=== PATIENT | male | born 1990 | race Caucasian/White ===

== ENCOUNTER 2017-09-28 11:54 | Emergency (ER) | payer OTHER ==
[~2017-09-28] VITALS: Ht 182.9 cm; Wt 81.6 kg
[~2017-09-28 11:54] MED LIST: CEPH250C37 PO; LOR5/325 PO
[2017-09-28 13:08] VITALS: BP 117/84
--- NOTE | 2017-12-21 07:15 | ER Report ---
History and Physical Time Seen By MD: 17:00 Hx. of Stated Complaint: pt reports he d/c an iv and blood/fluid splashed face and possibly got in L eye HPI/ROS Works an employee of [employer]. Possibly had blood splash into his left eye while removing an IV. Washed his eye copiously already immediately after the possible accident. No known HIV/hepatitis from source patient. Remainder of the 14 system rev: Yes Allergies: Coded Allergies: weed pollen (Unverified Allergy, Unknown, 12/13/17) Home Meds No Active Prescriptions or Reported Meds Reviewed Nurses Notes: Yes Old Medical Records Reviewed: No Hx Smoking: No Exposure to Second Hand Smoke?: No Hx Substance Use Disorder: No Hx Alcohol Use: Yes Physical Exam GE: Appears well. No evidence of fb to face/eye HEENT: PERRL, EOMI, no fb to b/l eyes CV: RRR no m/r/g Lungs: cta b/l no w/r/r Medical Decision Making Data Points Laboratory Hematology Test 09/28/17 12:45 Hepatitis B Surface Antigen Negative (NEGATIVE) Hepatitis B Surface Antibody Positive Hepatitis C Antibody Negative (NEGATIVE) HIV (1&2) Antibody Negative (NEGATIVE) Chemistry Test 09/28/17 12:45 Hepatitis B Surface Antigen Negative (NEGATIVE) Hepatitis B Surface Antibody Positive Hepatitis C Antibody Negative (NEGATIVE) HIV (1&2) Antibody Negative (NEGATIVE) ED Course/Re-evaluation ED Course Possible blood exposure to left eye. Already irrigated copiously. No vision changes or fb sensation. Occupational exposure protocol followed. Patient discharged back to full duty. Decision to Disposition Date: Sep 28, 2017 Decision to Disposition Time: 17:30 Depart Departure Impression: Primary Impression: Exposure to blood or body fluid Condition: Improved Disposition: HOME OR SELF-CARE New Scripts No Active Prescriptions or Reported Meds Departure Forms: Medications Reconciliation, Patient Portal Information, ER Transition Record Patient Instructions: Body Substance Exposure (ED) BEULAH CASEY MD Dec 21, 2017 07:15
== END 2017-09-28 13:11 | disposition home or self-care (01) ==
LOC: ER 12:28
DX: Z77.21 Contact with and (suspected) exposure to potentially hazardous body fluids (principal)
CPT/HCPCS: 86703; 86706; 86803; 87340; 99281

== ENCOUNTER → 2017-11-20 | Outpatient (REF) ==
[2017-11-20 10:12] LABS: LDL CHOLESTEROL 108 mg/dl
== END ==
DX: Z02.9 Encounter for administrative examinations, unspecified (principal)

== ENCOUNTER 2018-09-28 14:19 | Emergency (ER) | payer OTHER ==
[~2018-09-28 14:19] MED LIST changes: +CYCL10TA29 PO; +HYDR28.33 ASDIRECTED
[2018-09-28] MEDS ORDERED: ONDANSETRON 4 MG ODT TABDP SL ONE (14:45)
[2018-09-28] MEDS ORDERED: IBUPROFEN 600 MG TAB PO ONE (14:45)
--- NOTE | 2018-09-28 15:45 | RADIOLOGY IMAGING REPORT ---
[place] [facility] [place] NAME: Eileen Henao : 1990 MR: [id number] V: [id number] EXAM DATE: ORDERING PHYSICIAN: HOSSEIN LOPEZ TECHNOLOGIST: Location: [facility] - [place] Patient: Eileen Henao : 1990 Visit/Account:[id number] Date of Sevice: 09/28/2018 EXAMINATION: CT Head without intravenous contrast CT Cervical spine without intravenous contrast HISTORY: Trauma. TECHNIQUE: Head: Axial images were obtained from the skull base to the vertex without intravenous contrast. Sa gittal and coronal reformatted images are also submitted. Cervical spine: Axial images were obtained from the skull base through the upper thoracic spine with out IV contrast administration. Coronal and sagittal reformatted images were obtained from the axial source data. One of the following dose optimization techniques was utilized in the performance of this exam: Autom ated exposure control; adjustment of the mA and/or kV according to the patient's size; or use of an i terative reconstruction technique. Specific details can be referenced in the facility's radiology C T exam operational policy. COMPARISON: None available. FINDINGS: HEAD: Brain volume: Normal. Ventricles: Negative. Acute ischemic changes: None. Hemorrhage: None. Masses / edema: None. Pope-white: Negative. White matter: Negative. Vessels: Negative. Extra-axial: Negative. Calvarium / skull base: Negative. Visualized sinuses / orbits: Moderate mucosal thickening in the paranasal sinuses with mild fluid in the maxillary sinuses. CERVICAL SPINE: Alignment: Straightening of the normal lordosis. Cranio-cervical junction: Negative. Vertebral bodies: Negative. Posterior elements: Negative. Hardware: None. Disc Spaces: Negative. Soft tissues: Negative. Visualized upper chest: Negative. IMPRESSION: 1. No acute intracranial abnormality. 2. No acute cervical spine fracture. 3. Moderate mucosal thickening in the paranasal sinuses with mild fluid in the maxillary sinuses. Thi s may represent acute sinusitis in the appropriate clinical setting. Report Dictated By: Kareem Mac MD at 09/28/2018 3:33 PM Report E-Signed By: Kareem Mac MD at 09/28/2018 3:42 PM WSN:[id number]
--- NOTE | 2018-09-28 15:46 | RADIOLOGY IMAGING REPORT ---
FACILITY: [facility] PATIENT NAME: Eileen Henao : 1990 MR: [id number] V: [id number] EXAM DATE: ORDERING PHYSICIAN: HOSSEIN LOPEZ TECHNOLOGIST: Location: [facility] Patient: Eileen Henao : 1990 Visit/Account:[id number] Date of Sevice: 09/28/2018 EXAMINATION: CT Head without intravenous contrast CT Cervical spine without intravenous contrast HISTORY: Trauma. TECHNIQUE: Head: Axial images were obtained from the skull base to the vertex without intravenous contrast. Sa gittal and coronal reformatted images are also submitted. Cervical spine: Axial images were obtained from the skull base through the upper thoracic spine with out IV contrast administration. Coronal and sagittal reformatted images were obtained from the axial source data. One of the following dose optimization techniques was utilized in the performance of this exam: Autom ated exposure control; adjustment of the mA and/or kV according to the patient's size; or use of an i terative reconstruction technique. Specific details can be referenced in the facility's radiology C T exam operational policy. COMPARISON: None available. FINDINGS: HEAD: Brain volume: Normal. Ventricles: Negative. Acute ischemic changes: None. Hemorrhage: None. Masses / edema: None. Pope-white: Negative. White matter: Negative. Vessels: Negative. Extra-axial: Negative. Calvarium / skull base: Negative. Visualized sinuses / orbits: Moderate mucosal thickening in the paranasal sinuses with mild fluid in the maxillary sinuses. CERVICAL SPINE: Alignment: Straightening of the normal lordosis. Cranio-cervical junction: Negative. Vertebral bodies: Negative. Posterior elements: Negative. Hardware: None. Disc Spaces: Negative. Soft tissues: Negative. Visualized upper chest: Negative. IMPRESSION: 1. No acute intracranial abnormality. 2. No acute cervical spine fracture. 3. Moderate mucosal thickening in the paranasal sinuses with mild fluid in the maxillary sinuses. Thi s may represent acute sinusitis in the appropriate clinical setting. Report Dictated By: Kareem Mac MD at 09/28/2018 3:33 PM Report E-Signed By: Kareem Mac MD at 09/28/2018 3:42 PM WSN:[id number]
[2018-09-28 16:00] VITALS: BP 110/54
[2018-09-28] MEDS ORDERED: ONDA4TAB97 PO (16:11)
--- NOTE | 2018-09-28 16:12 | ER Report ---
History and Physical Time Seen By MD: 14:30 Hx. of Stated Complaint: Pt found skiver sock linings, amenisa of events, cracked helmet. No obvious injury. Nausea. HPI/ROS CHIEF COMPLAINT: Head injury with loss of consciousness. HISTORY OF PRESENT ILLNESS: Patient is a 28-year-old male who was snowboarding at [facility] area today slipped on a patch of ice and fell landing on his head cracking his helmet. There is report of loss of consciousness with retrograde amnesia. Patient reports nausea but no episodes of vomiting. Patient denies prior history of concussions. Patient also complaining of some upper cervical neck stiffness. Denies any other complaints at this time Allergies: Coded Allergies: weed pollen (Verified Allergy, Unknown, 09/28/18) Home Meds Discontinued Scripts Cyclobenzaprine Hcl (CYCLOBENZAPRINE HCL) 10 Mg Tablet, 0.5-1 TAB PO TID PRN for PAIN, #15 TAB 0 Refills Prov:POONAM MARSHALL DNP, QA TECH-BC 09/21/18 Hydrocortisone (Proctosol-Hc) 2.5 % Crm.pe.milad, 0 ASDIRECTED BID, #30 GM Prov:EVER DODSON MD 05/29/18 Past Medical/Surgical History Noncontributory Hx Smoking: No Smoking Status: Never Smoker Hx Substance Use Disorder: No Hx Alcohol Use: Yes Constitutional Vital Sign - Last 24 Hours 09/28/18 14:31 Temp 98.3 Pulse 74 Resp 16 B/P (MAP) 143/77 Pulse Ox 93 O2 Delivery Room Air Physical Exam General Appearance: The patient is alert, has no immediate need for airway protection and no current signs of toxicity. Eyes: Pupils equal and round no injection. Her ocular muscles are intact and symmetrical without entrapment Respiratory: Chest is non tender, lungs are clear to auscultation. Cardiac: regular rate and rhythm Gastrointestinal: Abdomen is soft and non tender, no masses, bowel sounds normal. Musculoskeletal: Neck: Neck is supple and non tender. Extremities have full range of motion and are non tender. Skin: No rashes or lesions. Medical Decision Making EKG/Imaging Imaging FACILITY: [facility] - [place] PATIENT NAME: Eileen Henao : 1990 MR: [id number] V: [id number] EXAM DATE: ORDERING PHYSICIAN: HOSSEIN LOPEZ TECHNOLOGIST: Location: [facility] Patient: Eileen Henao : 1990 Visit/Account:[id number] Date of : 09/28/2018 EXAMINATION: CT Head without intravenous contrast CT Cervical spine without intravenous contrast HISTORY: Trauma. TECHNIQUE: Head: Axial images were obtained from the skull base to the vertex without intravenous contrast. Sagittal and coronal reformatted images are also submitted. Cervical spine: Axial images were obtained from the skull base through the upper thoracic spine without IV contrast administration. Coronal and sagittal reformatted images were obtained from the axial source data. One of the following dose optimization techniques was utilized in the performance of this exam: Automated exposure control; adjustment of the mA and/or kV according to the patient's size; or use of an iterative reconstruction technique. Specific details can be referenced in the facility's radiology CT exam operational policy. COMPARISON: None available. FINDINGS: HEAD: Brain volume: Normal. Ventricles: Negative. Acute ischemic changes: None. Hemorrhage: None. Masses / edema: None. Pope-white: Negative. White matter: Negative. Vessels: Negative. Extra-axial: Negative. Calvarium / skull base: Negative. Visualized sinuses / orbits: Moderate mucosal thickening in the paranasal sinuses with mild fluid in the maxillary sinuses. CERVICAL SPINE: Alignment: Straightening of the normal lordosis. Cranio-cervical junction: Negative. Vertebral bodies: Negative. Posterior elements: Negative. Hardware: None. Disc Spaces: Negative. Soft tissues: Negative. Visualized upper chest: Negative. IMPRESSION: 1. No acute intracranial abnormality. 2. No acute cervical spine fracture. 3. Moderate mucosal thickening in the paranasal sinuses with mild fluid in the maxillary sinuses. This may represent acute sinusitis in the appropriate clinical setting. Report Dictated By: Kareem Mac MD at 09/28/2018 3:33 PM Report E-Signed By: Kareem Mac MD at 09/28/2018 3:42 PM WSN:[id number] ED Course/Re-evaluation ED Course Patient with clinical exam for concussion will perform CT scan of the head and C-spine. Decision to Disposition Date: Sep 28, 2018 Decision to Disposition Time: 16:09 Depart Departure Latest Vital Signs Vital Signs Date Time Temp Pulse Resp B/P (MAP) Pulse Ox O2 Delivery O2 Flow Rate FiO2 09/28/18 14:31 98.3 74 16 143/77 93 Room Air Impression: Primary Impression: Concussion Condition: Improved Disposition: HOME OR SELF-CARE Referrals: EVER DODSON MD (PCP) New Scripts Ondansetron Hcl (ZOFRAN) 4 Mg Tablet 4 MG PO Q8H for Nausea, #15 TAB 0 Refills Prov: HOSSEIN LOPEZ MD 09/28/18 Patient Instructions: Concussion (ED) Additional Instructions: Follow up for your concussion with Dr.Daniel Vaughn at [facility] located at [facility] at [place], [place]. Can call for an appointment by calling [phone] Problem Qualifiers Primary Impression: Concussion Encounter type: initial encounter Loss of consciousness presence/duration: with LOC of 30 min or less Qualified Codes: S06.0X1A - Concussion with loss of consciousness of 30 minutes or less, initial encounter HOSSEIN LOPEZ MD Sep 28, 2018 16:12
== END 2018-09-28 16:30 | disposition home or self-care (01) ==
LOC: ER 14:29
DX: S06.0X1A Concussion with loss of consciousness of 30 minutes or less, initial encounter (principal); W00.0XXA Fall on same level due to ice and snow, initial encounter; Y93.23 Activity, snow (alpine) (downhill) skiing, snowboarding, sledding, tobogganing and snow tubing; Y92.838 Other recreation area as the place of occurrence of the external cause
CPT/HCPCS: 70450; 72125; 99284; S0119

== ENCOUNTER 2018-10-02 17:15 | Outpatient (RCR) | payer OTHER ==
[~2018-10-02 17:15] MED LIST changes: +ONDA4TAB97 PO
--- NOTE | 2018-10-03 09:25 | PT INITIAL EVALUATION ---
MEDICAL DIAGNOSIS: acute left-sided low back pain without sciatica TREATMENT DIAGNOSIS: same, neck pain DATE OF ONSET: 09/17/18 SUBJECTIVE: Eileen Henao presents to physical therapy with left-sided low back pain that started on the September. 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 He reports that he feels like it has been improving over the last few weeks. He reports that the pain is no longer radiating down to his buttock; however, he reports that he feels like a lump is present in the L side of his low back with increased stiffness and would like to find some exercises to decrease that stiffness and return to his prior level. He reports that he goes to the gym regularly and feels like he is an active person. He reports that prolonged sitting or standing increases the pain. He reports that perform trunk bending helps the pain. He reports that he has increased pain in the am and it gets better as the day progresses. He also reports that he fell while snowboarding resulting in a concussion and neck pain, which he sought medical attention in the ER. He reports that he would like to look at the neck pain in the future. Pain location is L facet joint L4-5 region and described as stiffness. Pain scale is 1 on a ten point pain scale. REHAB PROBLEM LIST: Increased Pain Decreased ROM Decreased Strength Decreased Endurance Decreased Function PREVIOUS MEDICAL HISTORY: See EMR OCCUPATION: Teletypewriter Operator at [employer] OBJECTIVE: Posture: He demonstrates normal posture mechanics while sitting and standing. ROM: Trunk AROM: flexion: NIL with painful end feel. extension: Major restriction with painful end feel. side gliding R: NIL with normal end feel. side gliding L: minimal restriction with painful end feel. Strength: B LE's 5/5 Palpation: TTP: L facet joint L4-5 region Sensation: Intact Special Tests: Repeated flexion: increased pain during the test and peripheralizing pain to his R posterior back and anterior hip. Repeated extension: increased pain during the test and peripheralizing pain from L4-5 to T12-L2. Repeated extension with R hip shift: increased pain during the test and peripheralizing pain from L4-5 to T10-L2. Repeated flexion with R rotation: increased pain during the test and centralized pain with increased trunk AROM in all directions. Mobility: Independent Gait: He did not demonstrate any gait deviations in his gait mechanics. ASSESSMENT: Eileen will benefit from skilled physical therapy addressing the listed impairments to improve function and QOL. He did demonstrate directional preference with repeated flexion with R rotation that resulted in Short Term Goals 2 weeks: Pt will demonstrate centralized low back pain to improve function and QOL. 4 weeks: Pt will demonstrate abolished low back pain and return to prior level of function to improve function and QOL. Patient's Goals abolish low back pain PLAN: Patient to be seen for Manual Therapy/STM/MET Strengthening/condition Range of Motion Spinal Stabilization Work Hardening/Cond Stretching Neuromuscular Re-ed Closed Chain Program Home Exercise Program Therapeutic Activities 2x/Week for 4 Weeks If you have any questions, comments, or concerns about this report or plan, please contact me at . Thank you, Jayden Burgos, PT, DPT MTDD
--- NOTE | 2018-10-18 14:07 | PT PLAN OF CARE ---
Physician: Randee Zee DNP, BROTHEL KEEPER- Patient is being seen: Initial Examination Therapist: Jayden Burgos, PT, DPT Medical Diagnosis: acute left-sided low back pain without sciatica Treatment Diagnosis: same, neck pain Date of Onset: 09/17/18 Date of Initial Evaluation: 10/02/18 Date patient was last seen: 10/12/18 Number of treatments: Number of cancellations/No shows: 1 INTERVENTIONS: Manual Therapy/STM/MET Strengthening/condition Range of Motion Spinal Stabilization Work Hardening/Cond Stretching Neuromuscular Re-ed Closed Chain Program Home Exercise Program Therapeutic Activities GOALS: 2 weeks: Pt will demonstrate centralized low back pain to improve function and QOL. 4 weeks: Pt will demonstrate abolished low back pain and return to prior level of function to improve function and QOL. PATIENT'S GOAL: abolish low back pain Status of Patient's Goals: Unknown Patient Compliance: Poor Prognosis: Excellent Reasons for continuing therapy: This is a discharge note for Eileen Henao. He came in for the initial examination with a promising with a promising exam results, however, we need approximately 3 sessions to fully understand what is going on with his low back condition. However, he no showed his follow up visit and our airline lounge receptionist called and was told that he was doing great and did not need to return and was focused on a different issue. As a result, he will be discharged from PT. Posture: He demonstrates normal posture mechanics while sitting and standing. ROM: Trunk AROM: flexion: NIL with painful end feel. extension: Major restriction with painful end feel. side gliding R: NIL with normal end feel. side gliding L: minimal restriction with painful end feel. Strength: B LE's 5/5 Palpation: TTP: L facet joint L4-5 region Special Tests: Repeated flexion: increased pain during the test and peripheralizing pain to his R posterior back and anterior hip. Repeated extension: increased pain during the test and peripheralizing pain from L4-5 to T12-L2. Repeated extension with R hip shift: increased pain during the test and peripheralizing pain from L4-5 to T10-L2. Repeated flexion with R rotation: increased pain during the test and centralized pain with increased trunk AROM in all directions. Mobility: Independent If you have any questions, please contact me at [phone]. Thank you, Jayden Burgos, PT, DPT [facility]
== END 2018-10-02 18:00 | disposition home or self-care (01) ==
LOC: PT 17:15
PROVIDERS: ATTEND Internal Medicine
DX: M54.5 Low back pain (principal); M54.2 Cervicalgia
CPT/HCPCS: 97162

== ENCOUNTER → 2018-11-28 | Outpatient (REF) ==
[2018-11-28 10:56] LABS: LDL CHOLESTEROL 129 mg/dl
== END ==
DX: Z02.9 Encounter for administrative examinations, unspecified (principal)